=== PATIENT | female | born 1985 ===

== ENCOUNTER 2019-08-27 | Emergency (ER) | payer SELFPAY ==
--- NOTE | 2019-08-27 00:17 | EDM.PDOC ---
ED HPI GENERAL MEDICAL PROBLEM - General Chief Complaint: Upper Extremity Injury/Pain Stated Complaint: RT WRIST INJURY Time Seen by Provider: 08/27/19 00:10 - History of Present Illness INITIAL COMMENTS - FREE TEXT/NARRATIVE: History of present illness: 43-year-old female presenting with right hand/wrist pain after a fall just prior to arrival here. She does report she chronically has poor balance and stumbled and fell onto her wrist. She does have a brace in place which she reports that she usually uses for her ankles and wrists. She is having pain with range of motion and making a fist and flexing and extending her wrist. No other pain or injury reported. Review of systems: As per history of present illness and below otherwise all systems reviewed and negative. Past medical history: As per history of present illness and as reviewed below otherwise noncontributory. Surgical history: As per history of present illness and as reviewed below otherwise noncontributory. Social history: No reported history of drug or alcohol abuse. Family history: As per history of present illness and as reviewed below otherwise noncontributory. Physical exam: GEN: no acute distress, well appearing HEENT: Atraumatic, normocephalic, mucous membranes moist, Neck: supple, nontender, trachea midline. Lungs: No respiratory distress. Heart: RRR Abdomen: Soft, nondistended, nontender. Back: nontender Extremities: Tender to palpation, right hand, base of thumb and wrist. Painful and limited range of motion. No other injury. No forearm tenderness, and elbow and shoulder with painless and intact range of motion, distally neurovascularly intact. Remainder of extremities unremarkable Neuro: Awake, alert, oriented. Neuro Exam nonfocal. Skin: warm, dry, no lesions Diagnostics: [] Therapeutics: [] MDM: Impression: [] Plan: [] Definitive disposition and diagnosis as appropriate pending reevaluation and review of above. R wrist Pain Score (Numeric/FACES): 10 - Related Data Allergies Allergy/AdvReac Type Severity Reaction Status Date / Time paroxetine [From Paxil] Allergy Abdominal Verified 01/11/18 14:05 Pain peanut Allergy Swelling Verified 08/27/19 00:17 Home Meds: Home Meds Aspirin [Cara Chewable Aspirin] 81 mg PO DAILY 01/11/18 [History] Acetaminophen/HYDROcodone [[place] 325-5 MG] 1 tab PO Q8H PRN #15 tablet 08/27/19 [Rx] Multivitamin [Multivitamins] 1 cap PO DAILY 08/27/19 [History] Past Medical History - Infectious Disease History Infectious Disease History: Reports: Chicken Pox - Past Surgical History HEENT Surgical History: Reports: Tonsillectomy Social & Family History - Family History Family Medical History: Noncontributory Review of Systems - Review of Systems Review Of Systems: See Below (See HPI) ED EXAM, GENERAL - Physical Exam Exam: See Below (See HPI) Course - Vital Signs Text/Narrative:: Fall onto right hand/wrist. Fracture of the distal radial styloid which is intra-articular. Patient placed in splint. Discussed with orthopedics, this can be seen outpatient, Dr. Woodard will follow up with the patient and see her at his office in [place]. Last Recorded V/S: Last Vital Signs Temp 96.2 F L 08/27/19 00:11 Pulse 102 H 08/27/19 00:11 Resp 18 08/27/19 00:11 BP 171/99 H 08/27/19 00:11 Pulse Ox 97 08/27/19 00:11 - Orders/Labs/Meds Orders: Active Orders 24 hr Category Date Time Status DME for Discharge [COMM] Stat Oth 08/27/19 02:11 Ordered Meds: Medications Discontinued Medications Generic Name Dose Route Start Last Admin Trade Name Freq PRN Reason Stop Dose Admin Hydrocodone Bitart/Acetaminophen 1 tab 08/27/19 02:11 08/27/19 02:28 [place] 325-5 Mg PO 08/27/19 02:12 1 tab ONETIME ONE Administration - Re-Assessments/Exams Free Text/Narrative Re-Assessment/Exam: 08/27/19 02:13 I reexamined the patient. She is tearful and reports she is having a lot of pain. I discussed the x-ray pattern of fracture and need for splinting and discussion with orthopedic surgery. She agrees with this plan. Will place thumb spica splint and I ordered dose of [place] for comfort. The patient does have a ride home. 08/27/19 02:[address] Woodard the orthopedic surgeon at [place]. Discussed pattern of fracture based on x-ray images. He agrees with plan for thumb spica short arm splint and reports that this can be treated outpatient, does not need emergent transfer, and he will see the patient in clinic. Departure - Departure Time of Disposition: 02:34 Disposition: Home, Self-Care 01 Clinical Impression: Radial styloid fracture Qualifiers: Encounter type: initial encounter Fracture type: closed Fracture alignment: nondisplaced Laterality: right Qualified Code(s): S52.514A - Nondisplaced fracture of right radial styloid process, initial encounter for closed fracture - Discharge Information Prescriptions: Acetaminophen/HYDROcodone [[place] 325-5 MG] 1 tab PO Q8H PRN #15 tablet PRN Reason: Pain (Severe 7-10) Instructions: Radial Fracture, Cast or Splint Care, Adult, [id number], Wrist Fracture Treated With Immobilization, [id number] Referrals: Finn Ivan MD [Primary Care Provider] - Jaspreet Woodard MD [Ordering Only Provider] - 3 Days Forms: ED Department Discharge Additional Instructions: The following information is given to patients seen in the emergency department who are being discharged to home. This information is to outline your options for follow-up care. We provide all patients seen in our emergency department with a follow-up referral. The need for follow-up, as well as the timing and circumstances, are variable depending upon the specifics of your emergency department visit. If you don't have a primary care physician on staff, we will provide you with a referral. We always advise you to contact your personal physician following an emergency department visit to inform them of the circumstance of the visit and for follow-up with them and/or the need for any referrals to a consulting specialist. The emergency department will also refer you to a specialist when appropriate. This referral assures that you have the opportunity for follow-up care with a specialist. All of these measure are taken in an effort to provide you with optimal care, which includes your follow-up. Under all circumstances we always encourage you to contact your private physician who remains a resource for coordinating your care. When calling for follow-up care, please make the office aware that this follow-up is from your recent emergency room visit. If for any reason you are refused follow-up, please contact the [facility] Emergency Department at and asked to speak to the emergency department charge nurse. Your case has been discussed with Dr. Woodard, the orthopedic surgeon at [facility]. He will see you in the office for further evaluation. Please keep your splint on at all times until you see him at which point you will likely be placed in a cast. Keep the splint dry at all times. Ice to the area and you may take Tylenol or ibuprofen for pain. A prescription has also been sent to your pharmacy in case your pain is not well controlled by Tylenol or ibuprofen but please try to minimize the use of this pain medication as it may be habit- forming. Sepsis Event Note (ED) - Focused Exam Vital Signs: Vital Signs Temp Pulse Resp BP Pulse Ox 08/27/19 00:11 96.2 F L 102 H 18 171/99 H 97 - My Orders Last 24 Hours: My Active Orders 08/27/19 02:11 DME for Discharge [COMM] Stat - Assessment/Plan Last 24 Hours: My Active Orders 08/27/19 02:11 DME for Discharge [COMM] Stat
--- NOTE | 2019-08-27 00:49 | CR ---
Indication: Injury and pain Technique: Right wrist 3 view Comparison: None Findings: There is a mildly displaced intra-articular fracture at the radial styloid. The scaphoid appears intact. Normal carpal alignment. Impression: Radial styloid fracture. Dictated by Earl Womack MD @ Aug 27 2019 3:59PM Signed by Dr. Earl Womack @ Aug 27 2019 4:07PM
--- NOTE | 2019-08-27 00:49 | CR ---
INDICATION: Hand injury from fall TECHNIQUE: Hand radiograph 3 views right COMPARISON: None FINDINGS: Bone: There is a nondisplaced intra-articular fracture of the radial styloid present. Joint: The carpal and metacarpal-phalangeal joints are unremarkable in appearance. The interphalangeal joints are normal in appearance. Soft tissue: Unremarkable. No radiopaque foreign bodies are seen. IMPRESSION: 1. There is a nondisplaced intra-articular fracture of the radial styloid present. Dictated by Chung Brewster MD @ 08/27/2019 12:47:23 AM Dictated by: Chung Brewster MD @ 08/27/2019 00:47:41 (Electronically Signed)
[2019-08-27] MEDS ORDERED: Acetaminophen/HYDROcodone 325-5 MG Tab PO ONE (02:11)
== END 2019-08-27 03:15 | disposition home or self-care (01) ==
LOC: MW.ED
DX: S52.514A Nondisplaced fracture of right radial styloid process, initial encounter for closed fracture (principal); Z88.8 Allergy status to other drugs, medicaments and biological substances; Z91.010 Allergy to peanuts; W01.0XXA Fall on same level from slipping, tripping and stumbling without subsequent striking against object, initial encounter
CPT/HCPCS: 29125; 73110; 73130; 99283; A9270

== ENCOUNTER 2021-10-11 19:59 | Emergency (ER) | payer SELFPAY ==
[2021-10-11] MEDS ORDERED: Morphine 4 MG/ML VIAL IVPUSH ONE (22:45)
[2021-10-11] MEDS ORDERED: Lactated Ringers 1,000 ML IV STA ×2 (22:45→23:54)
[2021-10-11] MEDS ORDERED: Ondansetron 4 MG/2 ML SDV IVPUSH ONE (22:46)
[2021-10-11 23:26] LABS: CARBON DIOXIDE,CO2 28.3 mmol/L (21.0-32.0); POTASSIUM,K 3.2 mmol/L (3.5-5.1)
[2021-10-11] MEDS ORDERED: cefTRIAXone 2 GM in Premix Bag 1 BAG IV ONE (23:32)
[2021-10-11] MEDS ORDERED: metroNIDAZOLE/Normal Saline 500 MG in Premix Bag 1 BAG IV ONE (23:32)
[2021-10-12] MEDS ORDERED: Iopamidol 755 MG/ML 500 ML Multipack Bottle IVPUSH ONE (00:05)
[2021-10-12] MEDS ORDERED: Acetaminophen 500 MG Tab PO ONE (04:16)
== END 2021-10-12 06:03 ==
LOC: MERGE 19:59 → MW.ED 19:59
DX: K81.0 Acute cholecystitis (principal); I10 Essential (primary) hypertension; E11.9 Type 2 diabetes mellitus without complications; E66.9 Obesity, unspecified; Z68.43 Body mass index [BMI] 50.0-59.9, adult; Z88.8 Allergy status to other drugs, medicaments and biological substances; Z91.010 Allergy to peanuts; Z79.899 Other long term (current) drug therapy; Z79.82 Long term (current) use of aspirin; Z20.822 Contact with and (suspected) exposure to COVID-19
CPT/HCPCS: 36415; 74177; 80053; 82009; 82803; 83605; 83690; 84443; 84703; 85025; 85610; 87635; 96361; 96365; 96367; 96375; 99285; A9270; J0696; J2270; J2405; J3490; J7120; Q9967; 99284; U0002